=== PATIENT | male | born 1970 | race Caucasian/White ===

== ENCOUNTER 2018-04-22 10:08 | Emergency (ER) | payer OTHER | END 2018-04-22 12:29 | disposition home or self-care (01) | LOC: FTE 10:08 | DX: J01.00 Acute maxillary sinusitis, unspecified (principal) | CPT/HCPCS: 70486; 99284-25 ==

== ENCOUNTER 2018-07-28 06:21 | Emergency (ER) | payer OTHER ==
[2018-07-28 07:01] LABS: ADD MAN DIFF? NO
[2018-07-28 07:06] LABS: BASOPHILS % 0.4 % (0.0-2.0); EOSINOPHILS # 0.1 10^3/ul (0.0-0.5); EOSINOPHILS % 1.5 % (0.0-7.0); HEMATOCRIT 43.4 % (42.0-52.0); HEMOGLOBIN 15.3 g/dl (14.0-18.0); LYMPHOCYTES # 2.2 10^3/ul (0.8-2.9); LYMPHOCYTES % 45.5 % (15.0-51.0); MEAN CORPUSCULAR HEMOGLOBIN 30.7 pg (29.0-33.0); MEAN CORPUSCULAR HGB CONC 35.3 g/dl (32.0-37.0); MEAN CORPUSCULAR VOLUME 87.1 fl (82.0-101.0); MEAN PLATELET VOLUME 10.1 fl (7.4-10.4); MONOCYTE # 0.3 10^3/ul (0.3-0.9); MONOCYTES % 5.3 % (0.0-11.0); NEUTROPHIL # 2.2 10^3/ul (1.6-7.5); NEUTROPHILS % 47.1 % (39.0-77.0); PLATELET COUNT 170 10^3/UL (140-415); RED BLOOD COUNT 4.98 10^6/ul (4.70-6.10); RED CELL DISTRIBUTION WIDTH 11.8 % (11.5-14.5)
[2018-07-28 07:06] LABS: WHITE BLOOD COUNT 4.8 10^3/ul (4.8-10.8)
[2018-07-28 07:19] LABS: ANION GAP 9 (5-13); BLOOD UREA NITROGEN 16 mg/dl (7-20); CALCIUM 8.9 mg/dl (8.4-10.2); CARBON DIOXIDE 29 mmol/L (21-31); CHLORIDE 107 mmol/L (97-110); CREATININE 0.82 mg/dl (0.61-1.24); Estimated GFR > 60 mL/min (>60); GLUCOSE 98 mg/dl (70-220); POTASSIUM 4.1 mmol/L (3.5-5.1); SODIUM 145 mmol/L (135-144)
[2018-07-28] MEDS: ONDANSETRON 4 MG INJ IV (07:19)
[2018-07-28] MEDS ORDERED: DIPHENHYDRAMINE 50 MG INJ IV (07:30)
[2018-07-28 07:51] LABS: TROPONIN-I < 0.012 ng/ml (0.000-0.120)
[2018-07-28] MEDS: DIPHENHYDRAMINE 50 MG INJ IV (07:51)
== END 2018-07-28 09:10 | disposition home or self-care (01) ==
LOC: E/R 06:21
DX: R42 Dizziness and giddiness (principal); R11.0 Nausea; R40.2252 Coma scale, best verbal response, oriented, at arrival to emergency department; R40.2142 Coma scale, eyes open, spontaneous, at arrival to emergency department; R40.2362 Coma scale, best motor response, obeys commands, at arrival to emergency department
CPT/HCPCS: 36415; 80048; 84484; 85025; 93005; 96374; 96375; 99284-25

== ENCOUNTER 2019-01-19 10:43 | Emergency (ER) | payer OTHER ==
[2019-01-19] MEDS: METHOCARBAMOL 750 MG TAB PO (11:25)
[2019-01-19] MEDS: KETOROLAC 30 MG INJ IM (11:26)
== END 2019-01-19 14:00 | disposition home or self-care (01) ==
LOC: FTE 10:43
DX: M54.6 Pain in thoracic spine (principal)
CPT/HCPCS: 72072; 72100; 96372; 99284-25